=== PATIENT | female | born 1950 | race Caucasian/White ===

== ENCOUNTER → 2017-07-16 | Outpatient (CLI) | payer MEDICARE ==
[~2017-07-16] MED LIST: ALPR.25T GT; AMLO1CAP5 PO; ASP81CT; B12 SC; ESZO2TAB4 PO; FLC1T PO; LEVO88TA26 PO; LOTREL; LUNESTA; MTP25TSR; OMEP40CA36 PO; TERB250T42; VITAMIN D PO
--- NOTE | 2017-07-16 08:58 | Diagnostic Imaging Report ---
EXAMINATION: Bilateral diagnostic mammogram with tomography evaluation. The current study was also evaluated with a Computer Aided Detection (CAD) system. INDICATION: Bilateral breast burning sensation. FINDINGS: The breasts are composed of scattered fibroglandular densities. There are scattered benign-appearing calcifications. No mass, architectural distortion, or suspicious cluster of calcifications is seen. IMPRESSION: No mammographic evidence of malignancy. An ultrasound evaluation is pending. ACR BI-RADS Category 0: Incomplete. (Needs additional imaging evaluation). Result letter will be mailed to the patient. Note: At least 10% of breast cancer is not imaged by mammography. Dictated by: Dictated on workstation # [id number]
--- NOTE | 2017-07-16 10:03 | Diagnostic Imaging Report ---
Left breast ultrasound. INDICATION: Left breast pain. FINDINGS: Unremarkable breast parenchyma is seen with no focal lesion. TECHNIQUE: All four quadrants and the retroareolar region were examined on this study. IMPRESSION: Negative study. Clinical followup of the area of pain and burning sensation is recommended. ACR BI-RADS Category 1: Negative. Result letter will be mailed to the patient. Note: At least 10% of breast cancer is not imaged by mammography. Dictated by: Dictated on workstation # [id number]
== END ==
LOC: RAD 08:16
PROVIDERS: ATTEND Internal Medicine
DX: N64.4 Mastodynia (principal)
CPT/HCPCS: 76642; 77066

== ENCOUNTER → 2018-01-31 | Outpatient (CLI) | payer MEDICARE ==
[~2018-01-31] MED LIST changes: +IOHEXOL 350 MG/ML 100 ML (OMNIPAQUE 350) VIAL IV ONE; +NS 250 ML (IVPB) BAG IV ONE
[2018-01-31 14:16] LABS: CLARITY,URINE CLEAR; COLOR,URINE YELLOW; GLUCOSE, URINE (UA) NEGATIVE (NEGATIVE); KETONES,URINE 1+ (NEGATIVE); LEUKOCYTE ESTERASE ,URINE 1+ (NEGATIVE); NITRITE,URINE NEGATIVE (NEGATIVE); PH,URINE 5 (5-9); PROTEIN,URINE 2+ (NEGATIVE); UROBILINOGEN,URINE 1 MG/DL (NORMAL)
[2018-01-31 14:17] LABS: HEMOGLOBIN 14.5 G/DL (11.5-16.0); MEAN PLATELET VOLUME 10.8 FL (7.4-10.4); RED BLOOD COUNT 4.86 10^6/uL (4.35-5.85); RED CELL DISTRIBUTION WIDTH 13.4 % (10.0-14.5); WHITE BLOOD COUNT 8.7 10^3/uL (4.3-11.0)
[2018-01-31 14:36] LABS: BACTERIA,URINE TRACE /HPF; BILIRUBIN,URINE 1+ (NEGATIVE); WBC,URINE 0-2 /HPF
[2018-01-31 14:40] LABS: ALBUMIN 4.3 GM/DL (3.2-4.5); BILIRUBIN,TOTAL 1.2 MG/DL (0.1-1.0); CALCIUM 9.7 MG/DL (8.5-10.1); CREATININE SERUM 0.98 MG/DL (0.60-1.30); POTASSIUM 4.2 MMOL/L (3.6-5.0)
--- NOTE | 2018-01-31 15:08 | Diagnostic Imaging Report ---
PROCEDURE: CT abdomen and pelvis with contrast. TECHNIQUE: Multiple contiguous axial images were obtained through the abdomen and pelvis after administration of intravenous contrast. INDICATION: Generalized abdominal pain for 6 weeks. This is associated with nausea and diarrhea. FINDINGS: Note is made of densely calcified granuloma within the left hilum with additional calcified granulomas in the spleen. There is mild hiatal hernia. Low-density seen throughout the liver indicating hepatic steatosis. The gallbladder surgically absent. No pancreatic or adrenal gland abnormality is identified. Kidneys demonstrate numerous subcentimeter cortical cysts without evidence of hydronephrosis or solid renal mass. There is mild aortoiliac atherosclerotic calcification. Partially pacified urinary bladder is unremarkable. There is no organized fluid collection seen to indicate an abscess. 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 Otherwise, there is no CT evidence of acute abnormality in the abdomen or pelvis. Dictated by: Dictated on workstation # [id number]
== END ==
LOC: RAD 14:00
PROVIDERS: ATTEND Internal Medicine
DX: K44.9 Diaphragmatic hernia without obstruction or gangrene (principal); K76.0 Fatty (change of) liver, not elsewhere classified; E03.9 Hypothyroidism, unspecified; M54.12 Radiculopathy, cervical region; D73.89 Other diseases of spleen; J84.10 Pulmonary fibrosis, unspecified
CPT/HCPCS: 36415; 74177; 80053; 81000; 82150; 83690; 85027; 85652

== ENCOUNTER → 2018-07-29 | Outpatient (CLI) | payer MEDICARE ==
[~2018-07-29] MED LIST changes: -IOHEXOL 350 MG/ML 100 ML (OMNIPAQUE 350) VIAL IV ONE; -NS 250 ML (IVPB) BAG IV ONE
--- NOTE | 2018-07-30 15:43 | Diagnostic Imaging Report ---
EXAM: Digital mammogram, bilateral screening with 3D tomosynthesis and Computer Aided Detection (CAD) system. COMPARISON: This study was compared to the prior exams of 07/16/2017, 06/21/2016 and 12/28/2014. There are no current complaints. FINDINGS: There are scattered fibroglandular densities in both breasts which could obscure a lesion. Overall, there does not appear to have been any significant change when compared to the prior exam. No primary or secondary sign of malignancy is noted. IMPRESSION: There is no radiographic evidence for malignancy. ACR BI-RADS Category 1: Negative. Result letter will be mailed to the patient. Note: At least 10% of breast cancer is not imaged by mammography. Dictated by: Dictated on workstation # [id number]
== END ==
LOC: RAD 07:39
PROVIDERS: ATTEND Internal Medicine
DX: Z12.31 Encounter for screening mammogram for malignant neoplasm of breast (principal)
CPT/HCPCS: 77067

== ENCOUNTER 2019-02-05 05:51 | Outpatient (CLI) | payer MEDICARE ==
[~2019-02-05] VITALS: Ht 160 cm; Wt 78.5 kg
[2019-02-05] MEDS ORDERED: BENA10TA7 PO (10:05)
[2019-02-05] MEDS ORDERED: NICO1PAT34 TD (10:05)
[2019-02-05] MEDS ORDERED: AMLO5TAB9 PO (10:05)
[2019-02-05] MEDS ORDERED: CHOL500049 PO (10:05)
[2019-02-05] MEDS ORDERED: FOLI0.8T PO (10:05)
[2019-02-05] MEDS ORDERED: LEVO75TA6 PO (10:05)
[2019-02-05] MEDS ORDERED: ESZO3TAB30 PO (10:05)
[2019-02-05] MEDS ORDERED: L.AC1CAP6 PO (10:05)
== END 2019-02-05 10:07 | disposition home or self-care (01) ==
LOC: PREOP 05:51
PROVIDERS: ATTEND Specialist
DX: Z01.818 Encounter for other preprocedural examination (principal)

== ENCOUNTER 2019-02-07 06:03 | Day surgery (SDC) | payer MEDICARE ==
[~2019-02-07] VITALS: Ht 160 cm; Wt 78.5 kg
[~2019-02-07 06:03] MED LIST changes: +AMLO5TAB9 PO; +BENA10TA7 PO; +CHOL500049 PO; +ESZO3TAB30 PO; +FOLI0.8T PO; +L.AC1CAP6 PO; +LEVO75TA6 PO; +NICO1PAT34 TD
[2019-02-07 06:15] VITALS: BP 123/66
[2019-02-07] MEDS ORDERED: POVIDONE (BETADINE) OPHTH SOLN 5% 30 ML OP ONE (06:15)
[2019-02-07] MEDS ORDERED: TIMOLOL MALEATE 0.5% 5 ML (TIMOPTIC) BTL OU PRN (06:15)
[2019-02-07] MEDS ORDERED: LIDOCAINE PF 1% 2 ML AMP IR PRN (06:15)
[2019-02-07] MEDS ORDERED: MOXIFLOXACIN OPHTH SOLN 5 MG/ML 0.3 ML SYRINGE OP ONE (06:15)
[2019-02-07] MEDS: TETRACAINE 0.5% OPHTH SOLN 4 ML BTL (SINGLE DOSE ONLY) OU PRN ×4 (06:26→06:45)
[2019-02-07] MEDS: CYCLOPENTOLATE 1% (CYCLOGYL) 2 ML DROPS OP SCH ×3 (06:34→06:45)
[2019-02-07] MEDS: PHENYLEPHRINE 10% OPHTH (NEO-SYN) 5 ML BTL OU SCH ×3 (06:34→06:45)
[2019-02-07] MEDS ORDERED: MIDAZOLAM 2 MG/2 ML (VERSED) VIAL ONE (06:54)
--- NOTE | 2019-02-07 07:02 | Ophthalmologist Pre-Op Note ---
Pre-Operative Progress Note H&P Reviewed The H&P was reviewed, patient examined and no changes noted. Date H&P Reviewed: Feb 07, 2019 Time H&P Reviewed: 07:02 Pre-Op Dx Cataract, Right Eye JEMMA GAITAN MD Feb 07, 2019 07:02
--- NOTE | 2019-02-07 07:27 | Ophthalmology Operative Report ---
Cataract removal/placement IOL PREOPERATIVE DIAGNOSIS: Cataract Right Eye POSTOPERATIVE DIAGNOSIS: Cataract Right Eye PROCEDURE: Cataract removal and placement of posterior chamber implant, right eye SURGEON: Ilan Gaitan ANESTHESIA: Topical with sedation COMPLICATIONS: None ESTIMATED BLOOD LOSS: Minimal DESCRIPTION OF PROCEDURE: After proper informed consent was obtained, the patient, a 69 female, was taken to the Operating Room and the right eye was anesthetized with tetracaine. The right eye was then prepped and draped in the usual manner. A wire lid speculum was placed. A paracentesis was made at the left hand position. Preservative free lidocaine was injected into the anterior chamber followed by viscoelastic. A clear corneal incision was made in the temporal position. A capsulorrhexis was preformed and the central nuclear and cortical material were removed. The posterior capsule was polished and Enrrique [id number] 24.5 IOL was placed into the capsular bag. The residual viscoelastic was aspirated and balanced saline solution was injected into the anterior chamber. Moxifloxacin was injected into the anterior chamber. The wound was checked and found to be water tight. The patient tolerated the procedure well without complications. ILAN GAITAN MD Feb 07, 2019 07:27
[2019-02-07] MEDS ORDERED: acetaZOLAMIDE ER 500 MG CAP (DIAMOX SEQUELS) PO ONE (07:30)
[2019-02-07 07:35] VITALS: BP 120/64
--- NOTE | 2019-02-07 10:20 | Anesthesia-General Post-Op ---
MAC Patient Condition Mental Status/LOC: Same as Preop Cardiovascular: Satisfactory Nausea/Vomiting: Absent Respiratory: Satisfactory Pain: Controlled Complications: Absent Post Op Complications Complications None Follow Up Care/Instructions Patient Instructions None needed. Anesthesiology Discharge Order Discharge Order Patient is doing well, no complaints, stable vital signs, no apparent adverse anesthesia problems. No complications reported per nursing. SHIMON MCKINNEY CRNA Feb 07, 2019 10:20
== END 2019-02-07 07:35 | disposition home or self-care (01) ==
LOC: SDC 06:03
PROVIDERS: ATTEND Specialist
DX: H26.9 Unspecified cataract (principal); E03.9 Hypothyroidism, unspecified; K21.9 Gastro-esophageal reflux disease without esophagitis; Z83.518 Family history of other specified eye disorder; Z79.899 Other long term (current) drug therapy; Z88.0 Allergy status to penicillin; Z90.710 Acquired absence of both cervix and uterus; Z88.8 Allergy status to other drugs, medicaments and biological substances; Z98.890 Other specified postprocedural states; Z87.891 Personal history of nicotine dependence; Z82.49 Family history of ischemic heart disease and other diseases of the circulatory system

== ENCOUNTER 2019-02-19 05:48 | Outpatient (CLI) | payer MEDICARE ==
[~2019-02-19] VITALS: Ht 160 cm; Wt 78.5 kg
[2019-02-19] MEDS ORDERED: LEVO88TA54 PO (09:45)
== END 2019-02-19 09:51 | disposition home or self-care (01) ==
LOC: PREOP 05:48
PROVIDERS: ATTEND Specialist
DX: Z01.818 Encounter for other preprocedural examination (principal)

== ENCOUNTER 2019-02-21 06:32 | Day surgery (SDC) | payer MEDICARE ==
[~2019-02-21] VITALS: Ht 160 cm; Wt 78.5 kg
[~2019-02-21 06:32] MED LIST changes: +LEVO88TA54 PO
[2019-02-21] MEDS ORDERED: PHENYLEPHRINE 10% OPHTH (NEO-SYN) 5 ML BTL ONE (06:37)
[2019-02-21 06:40] VITALS: BP 128/80
[2019-02-21] MEDS ORDERED: POVIDONE (BETADINE) OPHTH SOLN 5% 30 ML OP ONE (06:45)
[2019-02-21] MEDS ORDERED: TIMOLOL MALEATE 0.5% 5 ML (TIMOPTIC) BTL OU PRN (06:45)
[2019-02-21] MEDS ORDERED: LIDOCAINE PF 1% 2 ML AMP IR PRN (06:45)
[2019-02-21] MEDS ORDERED: MOXIFLOXACIN OPHTH SOLN 5 MG/ML 0.3 ML SYRINGE OP ONE (06:45)
[2019-02-21] MEDS: TETRACAINE 0.5% OPHTH SOLN 4 ML BTL (SINGLE DOSE ONLY) OU PRN ×4 (06:46→07:07)
[2019-02-21] MEDS: CYCLOPENTOLATE 1% (CYCLOGYL) 2 ML DROPS OP SCH ×3 (06:57→07:07)
[2019-02-21] MEDS: PHENYLEPHRINE 10% OPHTH (NEO-SYN) 5 ML BTL OU SCH ×3 (06:58→07:07)
[2019-02-21] MEDS ORDERED: MIDAZOLAM 2 MG/2 ML (VERSED) VIAL ONE (07:02)
--- NOTE | 2019-02-21 07:29 | Ophthalmologist Pre-Op Note ---
Pre-Operative Progress Note H&P Reviewed The H&P was reviewed, patient examined and no changes noted. Date H&P Reviewed: Feb 21, 2019 Time H&P Reviewed: 07:28 Pre-Op Dx Cataract, Left Eye JEMMA GAITAN MD Feb 21, 2019 07:29
--- NOTE | 2019-02-21 07:53 | Ophthalmology Operative Report ---
Cataract removal/placement IOL PREOPERATIVE DIAGNOSIS: Cataract Left Eye POSTOPERATIVE DIAGNOSIS: Cataract Left Eye PROCEDURE: Cataract removal and placement of posterior chamber implant, left eye SURGEON: Ilan Gaitan ANESTHESIA: Topical with sedation COMPLICATIONS: None ESTIMATED BLOOD LOSS: Minimal DESCRIPTION OF PROCEDURE: After proper informed consent was obtained, the patient, a 69 female, was taken to the Operating Room and the left eye was anesthetized with tetracaine. The left eye was then prepped and draped in the usual manner. A wire lid speculum was placed. A paracentesis was made at the left hand position. Preservative free lidocaine was injected into the anterior chamber followed by viscoelastic. A clear corneal incision was made in the temporal position. A capsulorrhexis was preformed and the central nuclear and cortical material were removed. The posterior capsule was polished and an Enrrique 23.0 [id number] was placed into the capsular bag. The residual viscoelastic was aspirated and balanced saline solution was injected into the anterior chamber. Moxifloxacin was injected into the anterior chamber. The wound was checked and found to be water tight. The patient tolerated the procedure well without complications. ILAN GAITAN MD Feb 21, 2019 07:53
[2019-02-21] MEDS ORDERED: acetaZOLAMIDE ER 500 MG CAP (DIAMOX SEQUELS) PO ONE (08:00)
[2019-02-21 08:03] VITALS: BP 120/68
--- NOTE | 2019-02-21 10:58 | Anesthesia-General Post-Op ---
MAC Patient Condition Mental Status/LOC: Same as Preop Cardiovascular: Satisfactory Nausea/Vomiting: Absent Respiratory: Satisfactory Pain: Controlled Complications: Absent Post Op Complications Complications None Follow Up Care/Instructions Patient Instructions None needed. Anesthesiology Discharge Order Discharge Order Patient is doing well, no complaints, stable vital signs, no apparent adverse anesthesia problems. No complications reported per nursing. MARIYA ALVARADO CRNA Feb 21, 2019 10:58
[2019-02-21] MEDS ORDERED: GLYCOPYRROLATE 0.2 MG/ML (ROBINUL) 2 ML VIAL ONE (13:05)
== END 2019-02-21 08:03 | disposition home or self-care (01) ==
LOC: SDC 06:32
PROVIDERS: ATTEND Specialist
DX: H52.12 Myopia, left eye (principal); Z87.891 Personal history of nicotine dependence; I10 Essential (primary) hypertension; K21.9 Gastro-esophageal reflux disease without esophagitis; E03.9 Hypothyroidism, unspecified; G47.33 Obstructive sleep apnea (adult) (pediatric); Z79.899 Other long term (current) drug therapy

== ENCOUNTER → 2019-09-23 | Outpatient (CLI) | payer MEDICARE ==
[~2019-09-23] MED LIST changes: +BENA10TA66 PO; -BENA10TA7 PO
--- NOTE | 2019-09-23 12:14 | Diagnostic Imaging Report ---
INDICATION: Routine screening. COMPARISON: Comparison is made with prior mammograms from 07/29/2018 and 07/16/2017. TECHNIQUE: 2-D and 3-D bilateral screening mammography was performed. The current study was also evaluated with a Computer Aided Detection (CAD) system. 3-D tomosynthesis was also performed and reviewed. FINDINGS: Scattered fibroglandular densities are identified bilaterally. There are occasional benign calcifications in both breasts. No mass or malignant-appearing microcalcifications are seen. Axillae are unremarkable. IMPRESSION: No mammographic features suspicious for malignancy are identified. ACR BI-RADS Category 2: Benign findings. Result letter will be mailed to the patient. Note: At least 10% of breast cancer is not imaged by mammography. Dictated by: Dictated on workstation # [id number]
== END ==
LOC: RAD 08:01
PROVIDERS: ATTEND Internal Medicine
DX: Z12.31 Encounter for screening mammogram for malignant neoplasm of breast (principal)
CPT/HCPCS: 77067

== ENCOUNTER → 2020-08-26 | Outpatient (CLI) | payer MEDICARE ==
[~2020-08-26] MED LIST changes: +AMLO-250 PO; -AMLO5TAB9 PO
== END ==
LOC: LABNPT 05:38
PROVIDERS: ATTEND Internal Medicine Gastroenterology
DX: Z01.812 Encounter for preprocedural laboratory examination (principal); Z20.822 Contact with and (suspected) exposure to COVID-19
CPT/HCPCS: 87635

== ENCOUNTER → 2020-09-24 | Outpatient (CLI) | payer MEDICARE ==
--- NOTE | 2020-09-24 09:13 | Diagnostic Imaging Report ---
INDICATION: Routine screening. COMPARISON is made with prior mammogram 09/23/2019 and 07/29/2018. 2-D and 3-D bilateral screening mammography was performed with CAD. Scattered fibroglandular densities are identified bilaterally. Scattered benign calcifications are again noted. No dominant mass or malignant appearing microcalcifications are seen. Axillae are unremarkable. IMPRESSION: BI-RADS Category 2. No mammographic features suspicious for malignancy are identified. ACR BI-RADS Category 2: Benign findings. Result letter will be mailed to the patient. Note: At least 10% of breast cancer is not imaged by mammography. Dictated by: Dictated on workstation # [id number]
== END ==
LOC: RAD 07:30
PROVIDERS: ATTEND Internal Medicine
DX: Z12.31 Encounter for screening mammogram for malignant neoplasm of breast (principal)
CPT/HCPCS: 77063; 77067

== ENCOUNTER → 2021-03-09 | Outpatient (CLI) | payer MEDICARE ==
[~2021-03-09] MED LIST changes: -FOLI0.8T PO; +FOLI0.8T4 PO; +RT-ALBUTEROL SULF 2.5 MG/3 ML PRE-MIX VIAL INH ONE
--- NOTE | 2021-03-09 10:27 | Diagnostic Imaging Report ---
INDICATION: Dyspnea on exertion. TIME OF EXAM: 10:00 a.m. Correlation is made with prior chest 11/10/2013. FINDINGS: The heart size is normal. The pulmonary vascularity is unremarkable. The lungs are clear. No infiltrate, effusion or pneumothorax is detected. IMPRESSION: No acute cardiopulmonary process is detected. Dictated by: Dictated on workstation # [id number]
== END ==
LOC: RT 10:00
PROVIDERS: ATTEND Internal Medicine Cardiovascular Disease
DX: I35.1 Nonrheumatic aortic (valve) insufficiency (principal); J98.8 Other specified respiratory disorders; R06.09 Other forms of dyspnea
CPT/HCPCS: 71046; 93306; 94060; 94726; 94729

== ENCOUNTER → 2021-03-10 | Outpatient (CLI) | payer MEDICARE ==
[~2021-03-10] MED LIST changes: -RT-ALBUTEROL SULF 2.5 MG/3 ML PRE-MIX VIAL INH ONE
[2021-03-10 09:59] VITALS: BP 154/63
--- NOTE | 2021-03-10 11:32 | Cardiology Stress Test Report ---
Stress Test Report Date of Procedure/Referring: Date of Procedure: Mar 10, 2021 PCP Thee Ma Jr, MD Admitting Physician Irina Roberson DO Indications: Bradycardia and dyspnea on exertion. Baseline Blood Pressure: Blood Pressure Systolic: 154 Blood Pressure Diastolic: 63 Baseline EKG: Baseline EKG: Sinus bradycardia at 58 bpm with low voltage in the precordial leads. Summary/Conclusion: PROCEDURE: The patient was exercised for a total of 7 minutes of the standard Jose Martin protocol achieving a maximum MET level of 8.5. The resting heart rate was 58 bpm and the peak heart rate was 136 bpm, which represents 90% of the maximum predicted heart rate. The resting blood pressure was 154/63 mmHg and the peak blood pressure was 197/68 mmHg. This represents normal heart rate and blood pressure response to exercise. The test was stopped due to the patient attaining the target heart rate. There was no exercise-induced chest discomfort. There were isolated premature ventricular complexes during exercise, which resolved during recovery. There were no electrocardiogram changes during exercise. The patient exhibited excellent exercise capacity for age. IMPRESSION: 1. Normal heart rate and blood pressure response to exercise. 2. There was no exercise-induced chest discomfort. 3. There were isolated premature ventricular complexes during exercise which resolved during recovery. 4. There were no exercise-induced electrocardiogram changes. 5. The patient exhibited excellent exercise capacity for age at 7 minutes of the standard Jose Martin protocol. 6. This is a negative exercise treadmill test representing a low risk for future ischemic events. Certain portions of this document may have been dictated utilizing voice recognition technology. Inherent to this technology, typographical and grammatical errors may exist. As much as I am diligent to identify and correct these mistakes, some errors may remain in the document. THEE MA JR, MD Mar 10, 2021 11:32
== END ==
LOC: CARD 10:00
PROVIDERS: ATTEND Internal Medicine Cardiovascular Disease
DX: R00.1 Bradycardia, unspecified (principal); R06.09 Other forms of dyspnea
CPT/HCPCS: 93017

== ENCOUNTER → 2021-09-27 | Outpatient (CLI) | payer MEDICARE ==
--- NOTE | 2021-09-27 13:06 | Diagnostic Imaging Report ---
INDICATION: Routine screening. COMPARISON: 09/24/2020 and 09/23/2019. TECHNIQUE: 2D and 3D bilateral screening mammography was performed with CAD. FINDINGS: Both breasts are heterogeneously dense, limiting the sensitivity of mammography. There are scattered benign calcifications bilaterally. No dominant mass or malignant-appearing microcalcifications are seen. The axillae are unremarkable. IMPRESSION: No mammographic features suspicious for malignancy are identified. ACR BI-RADS Category 2: Benign findings. Result letter will be mailed to the patient. Note: At least 10% of breast cancer is not imaged by mammography. Dictated by: Dictated on workstation # [id number]
== END ==
LOC: RAD 09:15
PROVIDERS: ATTEND Internal Medicine
DX: Z12.31 Encounter for screening mammogram for malignant neoplasm of breast (principal)
CPT/HCPCS: 77063; 77067

== ENCOUNTER → 2022-07-10 | Outpatient (CLI) | payer MEDICARE | LOC: CARD 13:30 | PROVIDERS: ATTEND Internal Medicine Cardiovascular Disease | DX: R94.31 Abnormal electrocardiogram [ECG] [EKG] (principal) | CPT/HCPCS: 93306 ==